=== PATIENT | male | born 1970 | race Hispanic/Latino ===

== ENCOUNTER 2019-02-08 21:01 | Emergency (ER) | payer BC ==
[2019-02-08 21:41] VITALS: RESP 18; O2SAT 99
[2019-02-08] MEDS ORDERED: Tdap Vaccine 0.5 ml Vial (10-64 yrs) IM ONE ×2 (22:11→22:39)
[2019-02-08] MEDS ORDERED: Lidocaine/Epi 1% 1:100000 20 ML IJ ONE (22:11)
--- NOTE | 2019-02-08 22:14 | ED PDOC ---
Syncope/Near Syncope/Dizziness Chief Complaint (Provider): syncope History Per: Patient History/Exam Limitations: no limitations Onset/Duration Of Symptoms: Days (2) Current Symptoms Are (Timing): Better Activity At Onset Of Symptoms: Standing Associated Symptoms Preceding Syncopal Episode: Lightheadedness, Vertigo Possible Causative Factor(s): Recent Alcohol Additional Complaint(s): 48 y/o male presents for evaluation of syncopal episode prior to arrival. Patient states he was at a bar and had dinner and a few drinks and then stepped outside to get fresh air and started to feel lightheaded, dizzy, sweaty, and then fell to the ground, hitting chin and then fell onto right side of head. Patient states there was a short period where he "does not remember what happened". Patient denies headache, dizziness, extremity numbness/weakness, neck/back pain, vision changes, chest pain, shortness of breath, palpitations, leg pain/swelling. Patient admits to smoking marijuana earlier today <Nahomi Gutierrez - Last Filed: 02/09/19 00:16> <Lesly Edwards - Last Filed: 02/09/19 23:11> Time Seen by Provider: 02/08/19 21:54 Chief Complaint (Nursing): Syncope Past Medical History Reviewed: Historical Data, Nursing Documentation, Vital Signs Vital Signs: Last Vital Signs Temp 98.1 F 02/08/19 21:38 Pulse 80 02/08/19 21:38 Resp 18 02/08/19 21:38 BP 140/80 02/08/19 21:38 Pulse Ox 99 02/08/19 21:38 - Medical History PMH: No Chronic Diseases - Surgical History Surgical History: No Surg Hx - Family History Family History: States: No Known Family Hx - Living Arrangements Living Arrangements: With Family - Social History Current smoker - smoking cessation education provided: Yes Alcohol: Social Drugs: Cannabis <Nahoim Gutierrez - Last Filed: 02/09/19 00:16> Vital Signs: Last Vital Signs Temp 98.2 F 02/09/19 00:49 Pulse 88 02/09/19 00:49 Resp 18 02/09/19 00:49 BP 138/89 02/09/19 00:49 Pulse Ox 99 02/09/19 00:49 <Lesly Edwards - Last Filed: 02/09/19 23:11> - Allergies Allergies/Adverse Reactions: Allergies Allergy/AdvReac Type Severity Reaction Status Date / Time No Known Allergies Allergy Verified 02/08/19 21:38 Review of Systems ROS Statement: Except As Marked, All Systems Reviewed And Found Negative Skin: Positive for: Other (chin laceration, right eyebrow laceration) <Nahomi Gutierrez - Last Filed: 02/09/19 00:16> Physical Exam - Reviewed Nursing Documentation Reviewed: Yes Vital Signs Reviewed: Yes - Physical Exam Appears: Positive for: Well, Non-toxic, No Acute Distress Head Exam: Positive for: ATRAUMATIC, NORMAL INSPECTION, NORMOCEPHALIC Skin: Positive for: Rash (1.5cm laceration under chin; wound edges approximate well. No active bleeding, tenderness noted. ) Eye Exam: Positive for: EOMI, PERRL, Periorbital tenderness (0.3cm superficial laceration right eyebrow with + surrounding tenderness. ). Negative for: Periorbital swelling, Conjunctival injection ENT: Positive for: TM Is/Are (clear B/L), Other (right upper 2nd molar chipped; no loosening, gingival injury noted) Cardiovascular/Chest: Positive for: Regular Rate, Rhythm Respiratory: Positive for: Normal Breath Sounds Gastrointestinal/Abdominal: Positive for: Normal Exam Back: Positive for: Normal Inspection Extremity: Positive for: Normal ROM Neurological/Psych: Positive for: Awake, Alert, Oriented (x3) <Nahomi Gutierrez C - Last Filed: 02/09/19 00:16> - Laboratory Results Result Diagrams: 02/08/19 22:28 02/08/19 22:28 - ECG ECG: Positive for: Viewed By Me (reviewed by ED attending) ECG Rhythm: Positive for: Sinus Rhythm O2 Sat by Pulse Oximetry: 99 - Progress ED Course And Treament: EXAM: CT Head without Intravenous Contrast. CLINICAL HISTORY: Head injury TECHNIQUE: Axial computed tomography images of the head/brain without intravenous contrast. 830.26 mGy-cm COMPARISON: None provided. FINDINGS: BRAIN No acute intraparenchymal hemorrhage. No mass lesion. No CT evidence for acute territorial infarct. No midline shift or extra-axial collections. VENTRICLES: No hydrocephalus. ORBITS: The orbits are unremarkable. SINUSES AND MASTOIDS: The paranasal sinuses and mastoid air cells are clear. BONES: No fracture. SOFT TISSUES: Unremarkable. IMPRESSION: No acute intracranial abnormality EXAM: CT Maxillofacial without Intravenous Contrast. CLINICAL HISTORY: Trauma TECHNIQUE: Axial computed tomography images of the face without intravenous contrast. Sagittal and coronal reformatted images were generated. 770.36 mGy-cm CONTRAST: Without COMPARISON: None provided. FINDINGS: BONES: No acute fracture or aggressive appearing osseous lesion. The mandible is intact. SOFT TISSUES: The soft tissues are unremarkable. SINUSES: Chronic bilateral ethmoid and maxillary sinusitis. The sinuses are clear. ORBITS: The orbits are normal. No retrobulbar hematoma or mass. IMPRESSION: Sinusitis. Otherwise unremarkable maxillofacial CT Patient remains awake, alert, oriented throughout ED visit; denies complaints Patient educated on findings, discharged with instructions to follow up with PMD and Dentist within 2-3 days Advised suture removal 4-5 days Return precautions given <Nahomi Gutierrez - Last Filed: 02/09/19 00:16> - Laboratory Results Result Diagrams: 02/08/19 22:28 02/08/19 22:28 Lab Results: Troponin I < 0.0120 ng/mL (0.00-0.120) 02/08/19 22:28 Total Bilirubin 1.1 mg/dl (0.2-1.3) 02/08/19 22:28 AST 35 U/L (17-59) 02/08/19 22:28 ALT 40 U/L (21-72) 02/08/19 22:28 Alkaline Phosphatase 88 U/L (38-126) 02/08/19 22:28 Total Protein 8.0 G/DL (6.3-8.2) 02/08/19 22:28 Albumin 4.8 g/dL (3.5-5.0) 02/08/19 22:28 Globulin 3.3 gm/dL (2.2-3.9) 02/08/19 22:28 Albumin/Globulin Ratio 1.4 (1.0-2.1) 02/08/19 22:28 <Lesly Edwards - Last Filed: 02/09/19 23:11> Disposition - Patient ED Disposition Is Patient to be Admitted: No Counseled Patient/Family Regarding: Studies Performed, Diagnosis, Need For Followup - Disposition Disposition: Routine/Home Disposition Time: 00:00 <Nahomi Gutierrez - Last Filed: 02/09/19 00:16> <Lesly Edwards J - Last Filed: 02/09/19 23:11> - Clinical Impression Clinical Impression: Syncope, Chin laceration, Eyebrow laceration, Chipped tooth - Disposition Condition: IMPROVED Additional Instructions: Follow up with your primary doctor within 2-3 days Suture removal in 5 days Return to ED for worsening/concerning symptoms Instructions: Syncope (Fainting), Laceration Repair, Fractured Tooth Forms: [employer] (Portuguese) - 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 (Laceration upper anterior neck, curved shaped, with only subcutaneous fat, well- approximated) <Lesly Edwards - Last Filed: 02/09/19 23:11> Laceration - Laceration Repair chin laceration Wound Length (In cm): 0.59 in Description Of Wound: Linear Anesthesia: Lidocaine 1%, With Epi Wound Examination: Irrigated With Saline, No FB With Wound Exploration, No Tendon Injury With Wound Exploration Wound Closure: Suture (4) Suture Technique And Material Used: Interrupted, Prolene Wound Complexity: Simple right eyebrow laceration Wound Length (In cm): 0.12 in Description Of Wound: Linear Wound Closure: Steri Strips, Skin Glue Wound Complexity: Simple <Nahomi Gutierrez - Last Filed: 02/09/19 00:16>
[2019-02-08] MEDS ORDERED: Lidocaine 1% w Epi 1:100,000 Inj ONE (22:40)
[2019-02-08 22:46] LABS: BASO % 0.2 % (0.0-2.0); EOS % 0.4 % (0.0-4.0); HEMOGLOBIN 15.5 g/dL (12.0-18.0); LYMPH # 1.1 K/uL (1.0-4.3); LYMPH % 13.6 % (20.0-40.0); MEAN CELL VOLUME 89.9 fl (80.0-94.0); MEAN CORPUSCULAR HEMOGLOBIN 30.6 pg (27.0-31.0); MEAN CORPUSCULAR HGB CONC 34.1 g/dL (33.0-37.0); MEAN PLATELET VOLUME 7.7 fl (7.2-11.7); MONO # 0.8 K/uL (0.0-0.8); MONO % 9.3 % (0.0-10.0); NEUT # 6.2 K/uL (1.8-7.0); NEUT % 76.5 % (50.0-75.0); NRBC % 0.1 % (0.0-0.0); RBC 5.05 Mil/uL (4.40-5.90); RED CELL DISTRIBUTION WIDTH 13.6 % (11.5-14.5); WHITE BLOOD COUNT 8.1 K/uL (4.8-10.8)
[2019-02-08 22:58] LABS: ALB/GLOB RATIO 1.4 (1.0-2.1); ALBUMIN 4.8 g/dL (3.5-5.0); ALT/SGPT 40 U/L (21-72); AST/SGOT 35 U/L (17-59); BLOOD UREA NITROGEN 16 mg/dl (9-20); CALCIUM 9.7 mg/dL (8.4-10.2); GFR NON-AFRICAN AMERICAN > 60
[2019-02-09 00:53] VITALS: BP 138/89; PULSE 88; TEMP 98.2
--- NOTE | 2019-02-09 09:40 | CT ---
Date of service: 02/08/2019 PROCEDURE: CT HEAD WITHOUT CONTRAST. HISTORY: Syncope, head injury COMPARISON: None available. TECHNIQUE: Axial computed tomography images were obtained through the head/brain without intravenous contrast. Radiation dose: Total exam DLP = 1600.62 mGy-cm. This CT exam was performed using one or more of the following dose reduction techniques: Automated exposure control, adjustment of the mA and/or kV according to patient size, and/or use of iterative reconstruction technique. FINDINGS: HEMORRHAGE: No intracranial hemorrhage. BRAIN: No mass effect or edema. No atrophy or chronic microvascular ischemic changes. VENTRICLES: Unremarkable. No hydrocephalus. CALVARIUM: Unremarkable. PARANASAL SINUSES: Unremarkable as visualized. No significant inflammatory changes. MASTOID AIR CELLS: Unremarkable as visualized. No inflammatory changes. OTHER FINDINGS: None. IMPRESSION: No acute intracranial hemorrhage.
--- NOTE | 2019-02-09 10:31 | CT ---
Date of service: 02/08/2019 PROCEDURE: CT MAXILLOFACIAL BONES WITHOUT CONTRAST HISTORY: Syncope, injury COMPARISON: Comparison made with concurrent CT scan brain. TECHNIQUE: Contiguous axial CT images of the maxillofacial bones were obtained. Coronal and sagittal reformats were generated. Radiation dose: Total exam DLP = 1600.62 mGy-cm. This CT exam was performed using one or more of the following dose reduction techniques: Automated exposure control, adjustment of the mA and/or kV according to patient size, and/or use of iterative reconstruction technique. FINDINGS: NASAL BONES: Unremarkable. ORBITS: Unremarkable. PARANASAL SINUSES/ MASTOIDS: No fluid levels seen to suggest acute hemorrhage or sinusitis. Minor polypoid like mucosal thickening seen both maxillary antra. There is also minimal mucosal thickening within a few ethmoid air cells frontal sinus. MAXILLA: Unremarkable. MANDIBLE/ TEMPOROMANDIBULAR JOINTS: Unremarkable. SKULL BASE: Unremarkable. TEMPORAL BONES: Middle ears and mastoid grossly unremarkable. OTHER FINDINGS: Incidental note made of a few tiny calcified palatine tonsilliths IMPRESSION: No acute maxillofacial skeletal fractures. Minor mucoperiosteal inflammatory changes within the aforementioned paranasal sinuses as above.
--- NOTE | 2019-02-09 18:56 | CARD ---
APPROVED REPORT Date of service: 02/08/2019 EKG Measurement Heart [id number] <Conclusion> Normal sinus rhythm Normal ECG
== END 2019-02-09 00:49 | disposition home or self-care (01) ==
LOC: H.ER 21:01
DX: R55 Syncope and collapse (principal); S01.81XA Laceration without foreign body of other part of head, initial encounter; S01.111A Laceration without foreign body of right eyelid and periocular area, initial encounter; S02.5XXA Fracture of tooth (traumatic), initial encounter for closed fracture; W19.XXXA Unspecified fall, initial encounter; Y92.89 Other specified places as the place of occurrence of the external cause; J32.9 Chronic sinusitis, unspecified
CPT/HCPCS: 12011; 70450; 70486; 80053; 82948; 84484; 85025; 90471; 90715; 93005; 99285; G0480